=== PATIENT | male | born 1930 | race Caucasian/White ===

== ENCOUNTER 2018-04-28 18:55 | Observation (INO) ==
[2018-04-28] MEDS ORDERED: Morphine Sulfate Inj 2 MG/ML Vial IV.PUSH ONE (19:33)
[2018-04-28 20:19] LABS: Baso % (Auto) 0.4 % (0.0-2.0); Eos # (Auto) 0.1 th/mm3 (0.0-0.4); Eos % (Auto) 1.3 % (0.0-4.0); Hematocrit 40.1 % (39.0-51.0); Hemoglobin 13.5 gm/dL (13.0-17.0); Lymph # (Auto) 1.5 th/mm3 (1.0-4.8); Lymph % (Auto) 23.3 % (9.0-44.0); Mean Corpuscular HGB Conc 33.5 % (32.0-36.0); Mean Corpuscular Hemoglobin 34.4 pg (27.0-34.0); Mean Corpuscular Volume 102.5 fL (80.0-100.0); Mean Platelet Volume 8.6 fL (7.0-11.0); Mono # (Auto) 0.5 th/mm3 (0.0-0.9); Mono % (Auto) 7.9 % (0.0-8.0); Neut # (Auto) 4.3 th/mm3 (1.8-7.7); Neut % (Auto) 67.1 % (16.0-70.0); Platelet Count 116 th/mm3 (150-450); Red Blood Count 3.91 mil/mm3 (4.50-5.90); Red Cell Distribution Width 14.2 % (11.6-17.2); White Blood Count 6.4 th/mm3 (4.0-11.0)
--- NOTE | 2018-04-28 20:38 | XR ---
EXAM DATE: 04/28/2018 8:05 PM EDT AGE/SEX: 87 years / Male INDICATIONS: Chest pain with tightness and high blood pressure for 2 days. CLINICAL DATA: This is the patient's initial encounter. Patient reports that signs and symptoms have been present for 2 days and indicates a pain score of 2/10. MEDICAL/SURGICAL HISTORY: . High Blood pressure. CABG. COMPARISON: [facility], CHEST SINGLE AP, 01/12/2016. . FINDINGS: Heart size is enlarged. Previous sternotomy. Mild basilar density which may represent atelectasis. El evated left hemidiaphragm. CONCLUSION: Previous CABG with cardiomegaly. Basilar density could represent some dependent atelectasis. Question able mild interstitial edema. Electronically signed by: Noam Richards MD 04/28/2018 8:36 PM EDT
[2018-04-28 20:46] LABS: Alanine Aminotransferase 27 U/L (12-78)
[2018-04-28 20:47] LABS: Anion Gap 5 meq/L (5-15); Aspartate Aminotransferase 23 U/L (15-37); Blood Urea Nitrogen 11 mg/dL (7-18); Calcium 8.5 mg/dL (8.5-10.1); Carbon Dioxide 27.7 meq/L (21.0-32.0); Chloride 99 meq/L (98-107); Glomerular Filtration Rate 73 mL/min (>89); Glucose,Random 133 mg/dL (74-106); Potassium 4.6 meq/L (3.5-5.1); Sodium 132 meq/L (136-145)
[2018-04-28 20:49] LABS: Alkaline Phosphatase 99 U/L (45-117); Total Protein 7.6 g/dL (6.4-8.2)
[2018-04-28 20:54] LABS: INR 1.2 Ratio; Prothrombin Time 12.3 sec (9.8-11.6)
--- NOTE | 2018-04-28 20:55 | ED ---
HPI General Chief complaint: Extremity Problem,Nontraumatic Stated complaint: BP issues, increase in tremors Time Seen by Provider: 04/28/18 19:16 Source: patient and family Mode of arrival: ambulatory Limitations: no limitations History of Present Illness HPI narrative: 87-year-old male came to the emergency room with his and daughter with history of upper back pain radiating to his neck for past 1 week. Patient is saying that this pain is progressively getting worse. Pain exacerbates when he ambulates up to 10. Currently he has been getting pain even at rest. Patient says he is in pain right now at 5-6 out of 10. No history of nausea or vomiting. No history of shortness of breath. No history of diaphoresis. Patient has significant history of coronary artery disease and 5 vessel bypass done in 2000. Patient also had a STEMI 2 years ago. He has history of A. fib and currently on Eliquis. His back stayer is Dr. Smith from [facility] and vascular surgeon is Dr. Claire from [facility] as well. Patient has history of peripheral vascular disease. Vital signs are relatively stable. Onset (ago): week(s) Location: chest and back Radiation: neck Severity: moderate Severity scale (1-10): 7 Quality: aching Pain Consistency: constant Exacerbating factors: movement Associated symptoms: Reports weakness Related Data Home Medications Medication Instructions Recorded Confirmed Fish Oil 04/28/18 Vitamin D3 04/28/18 apixaban [Eliquis] 5 mg PO BID 04/28/18 04/28/18 furosemide [Lasix] mg PO DAILY PRN 04/28/18 04/28/18 isosorbide mononitrate 30 mg PO DAILY 04/28/18 04/28/18 lorazepam 0.5 mg PO HS 04/28/18 04/28/18 potassium chloride meq PO DAILY PRN 04/28/18 simvastatin 10 mg PO QPM 04/28/18 04/28/18 Previous Rx's Medication Instructions Recorded amlodipine [Norvasc] 5 mg PO DAILY #30 tab 04/30/18 losartan 50 mg PO DAILY #30 tab 04/30/18 metoprolol tartrate 25 mg PO BID #60 tab 04/30/18 Allergies Allergy/AdvReac Type Severity Reaction Status Date / Time No Known Allergies Allergy Verified 04/28/18 19:06 Review of Systems ROS: all other systems reviewed are negative Constitutional Reports lethargy Cardiovascular Reports chest pain [facility] Medical History Medical History Afib (Acute) Aneurysm (Acute) Hypertension (Acute) Prostate cancer (Acute) Surgical History Surgical History S/P CABG x 5 (Acute) Social History Social History Substance History: No History of Abuse Second Hand Smoke Exposure: No Smoking Status: Never smoker How Often Do You Have a Drink Containing Alcohol: 4 or more times a week Recent Travel in [facility] within the Last 8 Weeks: No Recent Out of Country Travel within the Last 8 Weeks: No Immunization History Tetanus Immunization: <5 Years Exam Narrative Exam Narrative: GENERAL: Awake, alert, elderly, anxious, moderate to SKIN: Focused skin assessment warm/dry. HEAD: Atraumatic. Normocephalic. EYES: Pupils equal and round. No scleral icterus. No injection or drainage. ENT: No nasal bleeding or discharge. Mucous membranes pink and moist. NECK: Trachea midline. No JVD. CARDIOVASCULAR: Regular rate and rhythm. No murmur appreciated. RESPIRATORY: No accessory muscle use. Clear to auscultation. Breath sounds equal bilaterally. GASTROINTESTINAL: Abdomen soft, non-tender, nondistended. Hepatic and splenic margins not palpable. MUSCULOSKELETAL: No obvious deformities. No clubbing. No cyanosis. No edema. NEUROLOGICAL: Awake and alert. No obvious cranial nerve deficits. Motor grossly within normal limits. Normal speech. PSYCHIATRIC: Appropriate mood and affect; insight and judgment normal. Course Initial Documented Vital Signs Temperature 97.4 F L 04/28/18 19:02 Pulse Rate 72 04/28/18 19:02 Respiratory Rate 18 04/28/18 19:02 Blood Pressure 199/123 H 04/28/18 19:02 Pulse Oximetry 96 04/28/18 19:02 Last Documented Vital Signs Temperature 98.3 F 04/30/18 08:00 Pulse Rate 76 04/30/18 08:00 Respiratory Rate 16 04/30/18 08:00 Blood Pressure 162/74 H 04/30/18 10:07 Pulse Oximetry 91 L 10/29/18 03:58 Medical Decision Making MDM Narrative Medical decision making narrative: 8:57 PM patient was given morphine for the pain. Blood test results are back and within acceptable limits. Given the significant history of coronary artery disease and this possibly simulating an angina variant I decided to admit the patient. Awaiting for the hospitalist to call me back. I have explained this to the patient and he understands. Medical Screen Exam Complete: Yes Emergency Medical Condition: Yes Lab Data Result diagrams: 04/29/18 01:29 04/29/18 01:29 Lab Results 04/28/18 04/28/18 04/28/18 Range/Units 19:41 19:41 19:41 WBC 6.4 (4.0-11.0) th/mm3 RBC 3.91 L (4.50-5.90) mil/mm3 Hgb 13.5 (13.0-17.0) gm/dL Hct 40.1 (39.0-51.0) % MCV 102.5 H (80.0-100.0) fL MCH 34.4 H (27.0-34.0) pg MCHC 33.5 (32.0-36.0) % RDW 14.2 (11.6-17.2) % Plt Count 116 L (150-450) th/mm3 MPV 8.6 (7.0-11.0) fL Neut % (Auto) 67.1 (16.0-70.0) % Lymph % (Auto) 23.3 (9.0-44.0) % Ballard % (Auto) 7.9 (0.0-8.0) % Eos % (Auto) 1.3 (0.0-4.0) % Baso % (Auto) 0.4 (0.0-2.0) % Neut # (Auto) 4.3 (1.8-7.7) th/mm3 Lymph # (Auto) 1.5 (1.0-4.8) th/mm3 Ballard # (Auto) 0.5 (0.0-0.9) th/mm3 Eos # (Auto) 0.1 (0.0-0.4) th/mm3 Baso # (Auto) 0.0 (0.0-0.2) th/mm3 WBC Differential . Differential Comment Auto diff final ESR (0-20) mm/hr PT (9.8-11.6) sec INR Ratio Sodium 132 L (136-145) meq/L Potassium 4.6 (3.5-5.1) meq/L Chloride 99 (98-107) meq/L Carbon Dioxide 27.7 (21.0-32.0) meq/L Anion Gap 5 (5-15) meq/L BUN 11 (7-18) mg/dL Creatinine 0.97 (0.60-1.30) mg/dL Estimated GFR 73 L (>89) mL/min Random Glucose 133 H (74-106) mg/dL Hemoglobin A1c (4.3-6.0) % Calcium 8.5 (8.5-10.1) mg/dL Total Bilirubin 0.9 (0.2-1.0) mg/dL AST 23 (15-37) U/L ALT 27 (12-78) U/L Alkaline Phosphatase 99 (45-117) U/L Troponin I Less than 0.02 L (0.02-0.05) ng/mL B-Natriuretic Peptide 346 H (0-100) pg/mL Total Protein 7.6 (6.4-8.2) g/dL Albumin 4.0 (3.4-5.0) g/dL Vitamin B12 (193-986) pg/mL TSH (0.358-3.740) uIU/mL 04/28/18 04/28/18 04/29/18 Range/Units 20:15 21:46 01:29 WBC 6.1 (4.0-11.0) th/mm3 RBC 3.45 L (4.50-5.90) mil/mm3 Hgb 12.0 L (13.0-17.0) gm/dL Hct 35.0 L (39.0-51.0) % MCV 101.5 H (80.0-100.0) fL MCH 34.7 H (27.0-34.0) pg MCHC 34.2 (32.0-36.0) % RDW 14.1 (11.6-17.2) % Plt Count 111 L (150-450) th/mm3 MPV 8.4 (7.0-11.0) fL Neut % (Auto) 63.1 (16.0-70.0) % Lymph % (Auto) 27.5 (9.0-44.0) % Ballard % (Auto) 8.4 H (0.0-8.0) % Eos % (Auto) 0.6 (0.0-4.0) % Baso % (Auto) 0.4 (0.0-2.0) % Neut # (Auto) 3.9 (1.8-7.7) th/mm3 Lymph # (Auto) 1.7 (1.0-4.8) th/mm3 Ballard # (Auto) 0.5 (0.0-0.9) th/mm3 Eos # (Auto) 0.0 (0.0-0.4) th/mm3 Baso # (Auto) 0.0 (0.0-0.2) th/mm3 WBC Differential . Differential Comment Auto diff final ESR (0-20) mm/hr PT 12.3 H (9.8-11.6) sec INR 1.2 Ratio Sodium (136-145) meq/L Potassium (3.5-5.1) meq/L Chloride (98-107) meq/L Carbon Dioxide (21.0-32.0) meq/L Anion Gap (5-15) meq/L BUN (7-18) mg/dL Creatinine (0.60-1.30) mg/dL Estimated GFR (>89) mL/min Random Glucose (74-106) mg/dL Hemoglobin A1c (4.3-6.0) % Calcium (8.5-10.1) mg/dL Total Bilirubin (0.2-1.0) mg/dL AST (15-37) U/L ALT (12-78) U/L Alkaline Phosphatase (45-117) U/L Troponin I (0.02-0.05) ng/mL B-Natriuretic Peptide (0-100) pg/mL Total Protein (6.4-8.2) g/dL Albumin (3.4-5.0) g/dL Vitamin B12 (193-986) pg/mL TSH 1.050 (0.358-3.740) uIU/mL 04/29/18 04/29/18 04/29/18 Range/Units 01:29 01:29 07:21 WBC (4.0-11.0) th/mm3 RBC (4.50-5.90) mil/mm3 Hgb (13.0-17.0) gm/dL Hct (39.0-51.0) % MCV (80.0-100.0) fL MCH (27.0-34.0) pg MCHC (32.0-36.0) % RDW (11.6-17.2) % Plt Count (150-450) th/mm3 MPV (7.0-11.0) fL Neut % (Auto) (16.0-70.0) % Lymph % (Auto) (9.0-44.0) % Ballard % (Auto) (0.0-8.0) % Eos % (Auto) (0.0-4.0) % Baso % (Auto) (0.0-2.0) % Neut # (Auto) (1.8-7.7) th/mm3 Lymph # (Auto) (1.0-4.8) th/mm3 Ballard # (Auto) (0.0-0.9) th/mm3 Eos # (Auto) (0.0-0.4) th/mm3 Baso # (Auto) (0.0-0.2) th/mm3 WBC Differential Differential Comment ESR (0-20) mm/hr PT (9.8-11.6) sec INR Ratio Sodium 135 L (136-145) meq/L Potassium 4.3 (3.5-5.1) meq/L Chloride 102 (98-107) meq/L Carbon Dioxide 25.4 (21.0-32.0) meq/L Anion Gap 8 (5-15) meq/L BUN 11 (7-18) mg/dL Creatinine 0.76 (0.60-1.30) mg/dL Estimated GFR Greater than 89 (>89) mL/min Random Glucose 113 H (74-106) mg/dL Hemoglobin A1c 6.1 H (4.3-6.0) % Calcium 8.2 L (8.5-10.1) mg/dL Total Bilirubin 1.1 H (0.2-1.0) mg/dL AST 20 (15-37) U/L ALT 20 (12-78) U/L Alkaline Phosphatase 79 (45-117) U/L Troponin I Less than 0.02 L Less than 0.02 L (0.02-0.05) ng/mL B-Natriuretic Peptide (0-100) pg/mL Total Protein 6.2 L D (6.4-8.2) g/dL Albumin 3.4 D (3.4-5.0) g/dL Vitamin B12 356 (193-986) pg/mL TSH (0.358-3.740) uIU/mL 04/29/18 Range/Units 16:45 WBC (4.0-11.0) th/mm3 RBC (4.50-5.90) mil/mm3 Hgb (13.0-17.0) gm/dL Hct (39.0-51.0) % MCV (80.0-100.0) fL MCH (27.0-34.0) pg MCHC (32.0-36.0) % RDW (11.6-17.2) % Plt Count (150-450) th/mm3 MPV (7.0-11.0) fL Neut % (Auto) (16.0-70.0) % Lymph % (Auto) (9.0-44.0) % Ballard % (Auto) (0.0-8.0) % Eos % (Auto) (0.0-4.0) % Baso % (Auto) (0.0-2.0) % Neut # (Auto) (1.8-7.7) th/mm3 Lymph # (Auto) (1.0-4.8) th/mm3 Ballard # (Auto) (0.0-0.9) th/mm3 Eos # (Auto) (0.0-0.4) th/mm3 Baso # (Auto) (0.0-0.2) th/mm3 WBC Differential Differential Comment ESR 7 (0-20) mm/hr PT (9.8-11.6) sec INR Ratio Sodium (136-145) meq/L Potassium (3.5-5.1) meq/L Chloride (98-107) meq/L Carbon Dioxide (21.0-32.0) meq/L Anion Gap (5-15) meq/L BUN (7-18) mg/dL Creatinine (0.60-1.30) mg/dL Estimated GFR (>89) mL/min Random Glucose (74-106) mg/dL Hemoglobin A1c (4.3-6.0) % Calcium (8.5-10.1) mg/dL Total Bilirubin (0.2-1.0) mg/dL AST (15-37) U/L ALT (12-78) U/L Alkaline Phosphatase (45-117) U/L Troponin I (0.02-0.05) ng/mL B-Natriuretic Peptide (0-100) pg/mL Total Protein (6.4-8.2) g/dL Albumin (3.4-5.0) g/dL Vitamin B12 (193-986) pg/mL TSH (0.358-3.740) uIU/mL Imaging Data Radiologist's impression: Head CT 04/28/18 00:00 CONCLUSION: 1. No acute intracranial abnormalities . Chest X-Ray 04/28/18 19:31 CONCLUSION: Previous CABG with cardiomegaly. Basilar density could represent some dependent atelectasis. Questionable mild interstitial edema. Carotid Doppler Study 04/29/18 00:00 CONCLUSION: 1. Right Internal Carotid Artery: Findings indicate <50% stenosis. 2. Left Internal Carotid Artery: Findings indicate 50-69% stenosis. Cervical Spine MRI 04/29/18 00:00 CONCLUSION: There are degenerative changes of the cervical spine, as above. However, no significant spinal canal stenosis or neural foraminal narrowing is present. Head MRI 04/29/18 00:00 CONCLUSION: Diffuse atrophy but no evidence of an acute stroke, mass or mass effect. Diffusion weighted sequences are normal. No subarachnoid or subdural hematoma is identified. Head MRA 04/29/18 00:00 CONCLUSION: 1. No definite intracranial stenosis or vascular occlusion. Nonvisualization of the proximal to mid posterior cerebral arteries bilaterally may be due to technical factors. There is reconstitution of flow distally on both sides. ECG Data Attestation: I personally reviewed and interpreted this ECG as follows: Interpretation: Twelve-lead EKG was reviewed by me. Normal A. fib, heart rate of 65 bpm, interventricular conduction delay. Discharge Plan Discharge Disposition Patient Disposition: 30 Still Patient Discharge Condition Condition: Stable Discharge Order Discharge Orders: Discharge Order (Routine); Ordered 04/30/18 Ordered By: Isaura Upton Discharge Details Anticipated Discharge Date: 04/30/18 Physicians Team ED Provider: Edita Vazquez Primary Care Provider: Juan Carlos Hernandez Attending Provider: Sophy Calvin Other Providers: Astrid Hercules David Status ED Status: Left Department Discharge Information Discharge Date/Time: 04/28/18 23:40
[2018-04-28] MEDS ORDERED: Bisacodyl 10 MG Supp RECTAL PRN (21:20)
--- NOTE | 2018-04-28 22:47 | P.HPIM ---
History of Present Illness Primary Care Physician: Juan Carlos Hernandez MD Review of Systems All other systems reviewed negative except as stated in HPI PMFSH - History History Provided By: Patient - Medical History Medical History: Medical History (Last Reviewed 04/28/18 @ 22:46 by Saroj Lopez MD) Afib Aneurysm Hypertension Prostate cancer - Surgical History Surgical History: Surgical History (Last Reviewed 04/28/18 @ 22:46 by Saroj Lopez MD) S/P CABG x 5 - Family History Family History: Family History (Last Reviewed 04/28/18 @ 22:46 by Saroj Lopez MD) Sister Heart problem Father Stomach cancer - Tobacco History Smoking Status: Never smoker - Alcohol History How Often Do You Have a Drink Containing Alcohol: 4 or more times a week - Substance Use History Substance History: No History of Abuse - Travel History Recent Travel in the [place] Within the Last 8 Weeks: No Recent Travel Out of the Country Within the Last 8 Weeks: No - Immunization History Tetanus Immunization: <5 Years Medications and Allergies Active Medications: Active Medications Al Hydroxide/Mg Hydroxide (Milk Of Magnesia Liq) 30 ml PO Q12H PRN PRN Reason: Mild Constipation Apixaban (Eliquis) 5 mg PO BID SUNIL Bisacodyl (Dulcolax Supp) 10 mg RECTAL DAILY PRN PRN Reason: SEVERE CONSITIPATION Enalaprilat (Vasotec Inj) 1.25 mg IV.PUSH Q6H PRN PRN Reason: SBP>160, DBP>90 Last Admin: 04/28/18 22:10 Dose: 1.25 mg Isosorbide Mononitrate (Imdur) 30 mg PO DAILY SUNIL Lactulose (Lactulose Liq) 30 ml PO DAILY PRN PRN Reason: SEVERE CONSITIPATION Losartan Potassium (Cozaar) 25 mg PO DAILY SUNIL Metoprolol Succinate (Toprol Xl) 25 mg PO DAILY SUNIL Pravastatin Sodium (Pravachol) 20 mg PO QPM SUNIL Sennosides (Senokot) 17.2 mg PO Q12H PRN PRN Reason: Moderate Constipation Sodium Chloride (Ns Flush) 2 ml IV.FLUSH UNSCH PRN PRN Reason: FLUSH AFTER USING IV ACCESS Allergies Allergy/AdvReac Type Severity Reaction Status Date / Time No Known Allergies Allergy Verified 04/28/18 19:06 Home Medications Medication Instructions Recorded Confirmed Type Fish Oil 04/28/18 History Vitamin D3 04/28/18 History apixaban [Eliquis] 5 mg PO BID 04/28/18 04/28/18 History furosemide [Lasix] mg PO DAILY PRN 04/28/18 04/28/18 History isosorbide mononitrate 30 mg PO DAILY 04/28/18 04/28/18 History lorazepam 0.5 mg PO HS 04/28/18 04/28/18 History losartan 25 mg PO DAILY 04/28/18 04/28/18 History metoprolol succinate 25 mg PO DAILY 04/28/18 04/28/18 History potassium chloride meq PO DAILY PRN 04/28/18 History simvastatin 10 mg PO QPM 04/28/18 04/28/18 History Exam Vital signs: Vital Signs 04/28/18 19:02 04/28/18 19:20 04/28/18 20:18 Temperature 97.4 F L Pulse Rate 72 73 Respiratory Rate 18 18 Blood Pressure 199/123 H 189/94 H Pulse Oximetry 96 100 99 04/28/18 20:19 04/28/18 22:16 Temperature Pulse Rate 67 78 Respiratory Rate 18 18 Blood Pressure 188/93 H 190/96 H Pulse Oximetry 98 97 Intake & Output 04/28/18 04/28/18 04/29/18 06:59 18:59 06:59 Weight 79.379 kg Narrative: GENERAL:. Appears comfortable. SKIN: Warm and dry. HEAD: Atraumatic. Normocephalic. EYES: Pupils equal and round. No scleral icterus. No injection or drainage. ENT: No nasal bleeding or discharge. Mucous membranes pink and moist. Bilateral neck fullness. Patient reports this has been looked into by primary care and patient with bilateral lipomas. NECK: Trachea midline. No JVD. CARDIOVASCULAR: Regular rate and rhythm. RESPIRATORY: No accessory muscle use. Clear to auscultation. Breath sounds equal bilaterally. GASTROINTESTINAL: Abdomen soft, non-tender, nondistended. Hepatic and splenic margins not palpable. MUSCULOSKELETAL: Extremities without clubbing, cyanosis, or edema. No obvious deformities. NEUROLOGICAL: Awake and alert. No obvious cranial nerve deficits. Motor grossly within normal limits. Five out of 5 muscle strength in the arms and legs. Normal speech. Patient with right upper extremity essential tremor. PSYCHIATRIC: Appropriate mood and affect; insight and judgment normal. Results - Labs CBC & Chem 7: 04/28/18 19:41 04/28/18 19:41 Labs: Short CBC 04/28/18 Range/Units 19:41 WBC 6.4 (4.0-11.0) th/mm3 Hgb 13.5 (13.0-17.0) gm/dL Hct 40.1 (39.0-51.0) % Plt Count 116 L (150-450) th/mm3 BMP 04/28/18 19:41 Sodium 132 L Potassium 4.6 Chloride 99 Carbon Dioxide 27.7 BUN 11 Creatinine 0.97 Calcium 8.5 Cardiac Enzymes 04/28/18 Range/Units 19:41 Troponin I Less than 0.02 L (0.02-0.05) ng/mL Liver Function 04/28/18 Range/Units 19:41 Total Bilirubin 0.9 (0.2-1.0) mg/dL AST 23 (15-37) U/L ALT 27 (12-78) U/L Alkaline Phosphatase 99 (45-117) U/L Albumin 4.0 (3.4-5.0) g/dL - Imaging Impressions Chest X-Ray 04/28/18 19:31 CONCLUSION: Previous CABG with cardiomegaly. Basilar density could represent some dependent atelectasis. Questionable mild interstitial edema. Caprini VTE Risk Assessment Caprini VTE Risk Assessment: Moderate/High Risk (score >= 2) Caprini Risk Assessment Model: Point Value = 1 Point Value = 2 Point Value = 3 Point Value = 5 Age 41-60 Minor surgery BMI > 25 kg/m2 Swollen legs Varicose veins or History of unexplained or recurrent spontaneous Oral contraceptives or hormone replacement Sepsis (< 1 month) Serious lung disease, including pneumonia (< 1 month) Abnormal pulmonary function Acute myocardial infarction Congestive heart failure (< 1 month) History of inflammatory bowel disease Medical patient at bed rest Age 61-74 Arthroscopic surgery Major open surgery (> 45 min) Laparoscopic surgery (> 45 min) Malignancy Confined to bed (> 72 hours) Immobilizing plaster cast Central venous access Age >= 75 History of VTE Family history of VTE Factor V Leiden Prothrombin [id number] Lupus anticoagulant Anticardiolipin antibodies Elevated serum homocysteine Heparin-induced thrombocytopenia Other congenital or acquired thrombophilia Stroke (< 1 month) Elective arthroplasty Hip, pelvis, or leg fracture Acute spinal cord injury (< 1 month) Prophylaxis Regimen: Total Risk Factor Score Risk Level Prophylaxis Regimen 0-1 Low Early ambulation 2 Moderate Order ONE of the following: *Sequential Compression Device (SCD) *Heparin 5000 units SQ BID 3-4 Higher Order ONE of the following medications: *Heparin 5000 units SQ TID *Enoxaparin/Lovenox 40 mg SQ daily (WT < 150 kg, CrCl > 30 mL/min) *Enoxaparin/Lovenox 30 mg SQ daily (WT < 150 kg, CrCl > 10-29 mL/min) *Enoxaparin/Lovenox 30 mg SQ BID (WT < 150 kg, CrCl > 30 mL/min) AND/OR *Sequential Compression Device (SCD) 5 or more Highest Order ONE of the following medications: *Heparin 5000 units SQ TID (Preferred with Epidurals) *Enoxaparin/Lovenox 40 mg SQ daily (WT < 150 kg, CrCl > 30 mL/min) *Enoxaparin/Lovenox 30 mg SQ daily (WT < 150 kg, CrCl > 10-29 mL/min) *Enoxaparin/Lovenox 30 mg SQ BID (WT < 150 kg, CrCl > 30 mL/min) AND *Sequential Compression Device (SCD) Assessment and Plan - Plan //Hypertensive urgency //Headache = With symptoms of headache, BL pounding neck pain = Patient does have known abdominal aortic aneurysm, however without abdominal pain at this time. = Systolic blood pressures in the 220s. = We will check CT head. = Restart home meds. Start enalapril IV as needed. //ER concern for atypical chest pain -EKG and troponins unremarkable. We will trend EKGs and troponins. //Recent complaint of ataxia, wide-based gait //Exacerbation of right upper extremity essential tremor. -Planes of "lightheadedness," however description is more of ataxia and wide- based gait. -Suspect this could be secondary to high blood pressure. Will check CT head Aggressive blood pressure control. -Also with symptoms consistent with Parkinson's. -We will check B12 and TSH Consult neurology. //Atrial fibrillation. Rate controlled. Continue home medication. Continue anticoagulation with Eliquis. //Hyperlipidemia. Chronic. Continue home medication. Discussed Condition With: Patient, nurse, ED physician, and daughter at bedside
--- NOTE | 2018-04-28 22:52 | CT ---
EXAM DATE: 04/28/2018 10:46 PM EDT AGE/SEX: 87 years / Male INDICATIONS: Headache, light-headed and worsening of tremors. CLINICAL DATA: This is the patient's initial encounter. Patient reports that signs and symptoms have been present for 1 day and indicates a pain score of 4/10. MEDICAL/SURGICAL HISTORY: Carcinoma, prostatic. Hypertension. Atrial fibrillation, aneurysm CABG. RADIATION DOSE: 39.23 CTDI (mGy) COMPARISON: No prior exams available for comparison. TECHNIQUE: CT of the head without contrast. Using automated exposure control and adjustment of the mA and/or kV according to patient size, radiation dose was kept as low as reasonably achievable to ob tain optimal diagnostic quality images. DICOM format image data is available electronically for revi ew and comparison. FINDINGS: Cerebrum: The ventricles are normal for age. No evidence of midline shift, mass lesion, hemorrhage or acute infarction. No extraaxial fluid collections are seen. Posterior Fossa: The cerebellum and brainstem are intact. The 4th ventricle is midline. The cerebe llopontine angle is unremarkable. Extracranial: The visualized portion of the orbits is intact. Skull: The calvaria is intact. No evidence of skull fracture. CONCLUSION: 1. No acute intracranial abnormalities . Electronically signed by: Noam Richards MD 04/28/2018 10:50 PM EDT
--- NOTE | 2018-04-28 22:53 | ECG ---
Date Performed: 04/28/2018 Time Performed: 19:25:07 PTAGE: 87 years EKG: ATRIAL FIBRILLATION INDETERMINATE AXIS MODERATE INTRAVENTRICULAR CONDUCTION DELAY ABNORMAL RHYTHM ECG NO PREVIOUS TRACING DOCTOR: Ajit Fofana Interpretating Date/Time 05/01/2018 13:25:55
[2018-04-29 01:43] LABS: Baso % (Auto) 0.4 % (0.0-2.0); Eos % (Auto) 0.6 % (0.0-4.0); Lymph # (Auto) 1.7 th/mm3 (1.0-4.8); Lymph % (Auto) 27.5 % (9.0-44.0); Mean Corpuscular HGB Conc 34.2 % (32.0-36.0); Mean Corpuscular Hemoglobin 34.7 pg (27.0-34.0); Mean Corpuscular Volume 101.5 fL (80.0-100.0); Mean Platelet Volume 8.4 fL (7.0-11.0); Mono # (Auto) 0.5 th/mm3 (0.0-0.9); Mono % (Auto) 8.4 % (0.0-8.0); Neut # (Auto) 3.9 th/mm3 (1.8-7.7); Neut % (Auto) 63.1 % (16.0-70.0); Platelet Count 111 th/mm3 (150-450); Red Blood Count 3.45 mil/mm3 (4.50-5.90); Red Cell Distribution Width 14.1 % (11.6-17.2); White Blood Count 6.1 th/mm3 (4.0-11.0)
[2018-04-29 02:07] LABS: Alanine Aminotransferase 20 U/L (12-78); Albumin 3.4 g/dL (3.4-5.0); Anion Gap 8 meq/L (5-15); Aspartate Aminotransferase 20 U/L (15-37); Blood Urea Nitrogen 11 mg/dL (7-18); Calcium 8.2 mg/dL (8.5-10.1); Carbon Dioxide 25.4 meq/L (21.0-32.0); Chloride 102 meq/L (98-107); Glomerular Filtration Rate Greater Than 89 mL/min (>89); Glucose,Random 113 mg/dL (74-106); Potassium 4.3 meq/L (3.5-5.1); Sodium 135 meq/L (136-145)
[2018-04-29 02:33] LABS: Alkaline Phosphatase 79 U/L (45-117); Total Protein 6.2 g/dL (6.4-8.2); Vitamin B12 356 pg/mL (193-986)
--- NOTE | 2018-04-29 07:30 | P.PN ---
Subjective Interval history: Follow-up on patient with headache. Patient seen and examined. Patient complains of posterior left-sided headache. He says it is not that bad this morning. He denies any dizziness, vision changes or lightheadedness. He denies any chest pain or palpitations. He denies any shortness of breath or cough. He denies any nausea, vomiting or abdominal pain. He states he is urinating without any difficulties. He denies any diarrhea or constipation. He is not having any neck pain this morning. He denies any new weakness or difficulty holding onto objects. He states his handwriting has changed due to the tremor in his right hand. Physical Exam Vital signs: Vital Signs 04/28/18 19:02 04/28/18 19:20 04/28/18 20:18 Temperature 97.4 F L Pulse Rate 72 73 Respiratory Rate 18 18 Blood Pressure 199/123 H 189/94 H Pulse Oximetry 96 100 99 04/28/18 20:19 04/28/18 22:16 04/28/18 23:03 Temperature Pulse Rate 67 78 66 Respiratory Rate 18 18 18 Blood Pressure 188/93 H 190/96 H 143/78 H Pulse Oximetry 98 97 96 04/28/18 23:37 04/29/18 03:59 Temperature 97.5 F L 97.7 F Pulse Rate 73 65 Respiratory Rate 18 18 Blood Pressure 137/75 137/85 Pulse Oximetry 97 98 Intake & Output 04/28/18 04/29/18 04/29/18 18:59 06:59 18:59 Weight 79.37 kg Other: Date of Last Bowel Movement 04/29/18 Weight On Admission 78.6 kg Narrative: GENERAL: Well-developed well-nourished elderly male patient in no acute distress. Awake and alert. Appears comfortable. +RUE essential tremor. SKIN: Warm and dry. HEENT: Atraumatic. Normocephalic. Pupils equal and round. No scleral icterus. No injection or drainage. No nasal bleeding or discharge. Mucous membranes pink and moist. Bilateral neck fullness. Patient reports this has been looked into by primary care and patient with bilateral lipomas. NECK: Trachea midline. +tenderness to palpation over left greater occiput. CARDIOVASCULAR: Regular rate and rhythm. RESPIRATORY: No accessory muscle use. Clear to auscultation. Breath sounds equal bilaterally. GASTROINTESTINAL: Abdomen soft, non-tender, nondistended. +BS. MUSCULOSKELETAL: Extremities without clubbing, cyanosis, or edema. No obvious deformities. NEUROLOGICAL: Awake and alert. No obvious cranial nerve deficits. Motor grossly within normal limits. Able to move all extremity spontaneously. Normal speech. PSYCHIATRIC: Appropriate mood and affect; insight and judgment normal. Results - Labs CBC & Chem 7: 04/29/18 01:29 04/29/18 01:29 Laboratory Results - last 24 hr 04/28/18 04/28/18 04/28/18 19:41 19:41 19:41 WBC 6.4 RBC 3.91 L Hgb 13.5 Hct 40.1 MCV 102.5 H MCH 34.4 H MCHC 33.5 RDW 14.2 Plt Count 116 L MPV 8.6 Neut % (Auto) 67.1 Lymph % (Auto) 23.3 Terry % (Auto) 7.9 Eos % (Auto) 1.3 Baso % (Auto) 0.4 Neut # (Auto) 4.3 Lymph # (Auto) 1.5 Terry # (Auto) 0.5 Eos # (Auto) 0.1 Baso # (Auto) 0.0 WBC Differential . Differential Comment Auto diff final PT INR Sodium 132 L Potassium 4.6 Chloride 99 Carbon Dioxide 27.7 Anion Gap 5 BUN 11 Creatinine 0.97 Estimated GFR 73 L Random Glucose 133 H Calcium 8.5 Total Bilirubin 0.9 AST 23 ALT 27 Alkaline Phosphatase 99 Troponin I Less than 0.02 L B-Natriuretic Peptide 346 H Total Protein 7.6 Albumin 4.0 Vitamin B12 TSH 04/28/18 04/28/18 04/29/18 20:15 21:46 01:29 WBC 6.1 RBC 3.45 L Hgb 12.0 L Hct 35.0 L MCV 101.5 H MCH 34.7 H MCHC 34.2 RDW 14.1 Plt Count 111 L MPV 8.4 Neut % (Auto) 63.1 Lymph % (Auto) 27.5 Terry % (Auto) 8.4 H Eos % (Auto) 0.6 Baso % (Auto) 0.4 Neut # (Auto) 3.9 Lymph # (Auto) 1.7 Terry # (Auto) 0.5 Eos # (Auto) 0.0 Baso # (Auto) 0.0 WBC Differential . Differential Comment Auto diff final PT 12.3 H INR 1.2 Sodium Potassium Chloride Carbon Dioxide Anion Gap BUN Creatinine Estimated GFR Random Glucose Calcium Total Bilirubin AST ALT Alkaline Phosphatase Troponin I B-Natriuretic Peptide Total Protein Albumin Vitamin B12 TSH 1.050 04/29/18 01:29 WBC RBC Hgb Hct MCV MCH MCHC RDW Plt Count MPV Neut % (Auto) Lymph % (Auto) Terry % (Auto) Eos % (Auto) Baso % (Auto) Neut # (Auto) Lymph # (Auto) Terry # (Auto) Eos # (Auto) Baso # (Auto) WBC Differential Differential Comment PT INR Sodium 135 L Potassium 4.3 Chloride 102 Carbon Dioxide 25.4 Anion Gap 8 BUN 11 Creatinine 0.76 Estimated GFR Greater than 89 Random Glucose 113 H Calcium 8.2 L Total Bilirubin 1.1 H AST 20 ALT 20 Alkaline Phosphatase 79 Troponin I Less than 0.02 L B-Natriuretic Peptide Total Protein 6.2 L D Albumin 3.4 D Vitamin B12 356 TSH - Imaging Impressions Head CT 04/28/18 00:00 CONCLUSION: 1. No acute intracranial abnormalities . Chest X-Ray 04/28/18 19:31 CONCLUSION: Previous CABG with cardiomegaly. Basilar density could represent some dependent atelectasis. Questionable mild interstitial edema. Assessment and Plan - Plan 87-year-old male with a history of coronary artery disease status post 5 vessel CABG, peripheral artery disease, abdominal aortic aneurysm who presents with a 2 -day history of progressively worsening throbbing bilateral neck pain radiating to bilateral head, shuffling, wide-based gait with generalized weakness. Hypertensive urgency With symptoms of headache, BL pounding neck pain Patient does have known abdominal aortic aneurysm, however without abdominal pain at this time. Systolic blood pressures in the 220s. Head CT with no acute intracranial abnormalities -Continue on home medications losartan, isosorbide, metoprolol and Eliquis -IV Vasotec as needed Headache, possibly cervicogenic in origin vs secondary to uncontrolled BP ?Greater occipital neuralgia -Trial of Fioricet -Obtain MRI cervical spine for further evaluation ER concern for atypical chest pain history of 5 vessel CABG Patient denies any complaints of chest pain EKG and troponins unremarkable. -Cardiology consulted, appreciate assistance. Added amlodipine to patient's antihypertensive regimen.. No further workup for ischemia. Atrial fibrillation, rate controlled -Resume patient on home dose of Eliquis and beta-tulio -Monitor heart rate Recent complaint of ataxia, wide-based gait Exacerbation of right upper extremity essential tremor. Complains of "lightheadedness," however description is more of ataxia and wide- based gait. Suspect this could be secondary to high blood pressure. Carotid US revealing less than 50% stenosis in the right internal carotid artery , 50-69% stenosis in the left internal carotid artery Orthostatics neg -Consult neurology, appreciate assistance Aggressive blood pressure control. -Also with symptoms consistent with Parkinson's. Hyperlipidemia, chronic -Continue home statin therapy DVT prophylaxis -Patient is on Eliquis Code Status: Full Discussed Condition With: patient, nursing staff, Dr. Calvin, Dr. Lazo Discharge Planning: Not ready for discharge
[2018-04-29] MEDS ORDERED: Butalbital/APAP/Caff 50/325/40 MG Tablet PO PRN (09:02)
[2018-04-29] MEDS ORDERED: Butalbital/APAP/Caff 50/325/40 MG Tablet PO ONE (09:15)
[2018-04-29] MEDS: amLODIPine 5 MG Tablet PO SCH (09:40)
[2018-04-29] MEDS: Metoprolol Tartrate 25 MG Tablet PO SCH ×2 (09:40→21:13)
[2018-04-29] MEDS: Isosorbide Mononitrate 30 MG ER 24HR Tablet (Imdur) PO SCH (09:40)
--- NOTE | 2018-04-29 10:23 | US ---
EXAM DATE: 04/29/2018 10:16 AM EDT AGE/SEX: 87 years / Male INDICATIONS: Weakness. CLINICAL DATA: This is the patient's initial encounter. Patient reports that signs and symptoms have been present for 1 week and indicates a pain score of 0/10. MEDICAL/SURGICAL HISTORY: Hypertension. A-fib. Aneurysm. Coronary artery disease. Prostate canc er. CABG. COMPARISON: No prior exams available for comparison. VELOCITY PARAMETERS: ICA/CCA Ratio: Right 1.1 , Left 1.5 ICA: Right 84 cm/sec, Left 135 cm/sec CCA: Right 75 cm/sec, Left 90 cm/sec ECA: Right 82 cm/sec, Left 85 cm/sec Vertebral: Right 35 cm/sec antegrade, Left 71 cm/sec antegrade FINDINGS: Right Carotid: There is mild to moderate calcified plaque in the carotid bulb.The waveforms are with in normal limits. Left Carotid: There is mild focal plaque in the proximal to mid common carotid artery. Mild calcifie d plaque is present within the carotid bulb and proximal internal carotid artery. The waveforms are w ithin normal limits. Other: None. CONCLUSION: 1. Right Internal Carotid Artery: Findings indicate <50% stenosis. 2. Left Internal Carotid Artery: Findings indicate 50-69% stenosis. Electronically signed by: Christian Lyle MD 04/29/2018 10:21 AM EDT
--- NOTE | 2018-04-29 11:19 | MB ---
cc: Astrid Hercules MD DATE: 04/29/2018 HISTORY OF PRESENT ILLNESS: The patient is an 87-year-old gentleman who sees Dr. Talavera as an outpatient. He does have a history of CABG and I in fact cathed him in 01/2016. At that time, he had normal LV function. There was severe [place] disease. The GARCIA to LAD was atretic and this was felt secondary to competitive flow, as there was only minimal disease in the [place] artery. The SVG to the diagonal, OM and PDA were all patent. The patient reports he has been doing well recently. He has had typically good control of his blood pressure until the last several days. He noticed that he is having very high blood pressures at home. He began having neck discomfort that caused flushing up into his face. He specifically denies any chest pain. He has also had some difficulties with generalized weakness. PAST MEDICAL AND SURGICAL HISTORY: Significant for hypertension, hyperlipidemia, CAD with prior CABG as above, peripheral vascular disease with abdominal aortic aneurysm, atrial fibrillation. OUTPATIENT MEDICATIONS: Include: 1. Eliquis. 2. Isosorbide. 3. Losartan. 4. Metoprolol 25 mg p.o. b.i.d. (I realize this is different than the listed meds). 5. Pravastatin. REVIEW OF SYSTEMS: Except as mentioned in the HPI, all 12 systems are negative. FAMILY HISTORY: Noncontributory. PHYSICAL EXAMINATION: VITAL SIGNS: Temperature 98.4, pulse 67, blood pressure 180/89. GENERAL: He is a well-appearing, elderly man who is in no apparent distress. NECK: Free from JVD. LUNGS: Bilaterally clear to auscultation. CARDIOVASCULAR: He has a normal S1 and S2. I did not appreciate any murmurs, rubs or gallops. ABDOMEN: Soft. EXTREMITIES: Free from edema. LABORATORY DATA: Significant for a hemoglobin of 12. His creatinine is 0.76 and serial troponins are less than 0.02. His BNP is 346. Chest x-ray does show bibasilar densities, which could possibly represent some dependent atelectasis. EKG shows atrial fibrillation. IMPRESSION: Uncontrolled hypertension - the patient does have what seems to be a reasonable outpatient regimen. After discussion with him, he does love cheese and has cold cuts. We discussed extensively sodium intake as this would be the most likely etiology to his fluctuations in blood pressure. I am going to add some amlodipine to assist with this. I will also give him clonidine p.r.n. CAD - the patient does appear reasonably stable as his cardiac catheterization was just over 2 years ago and he is seemingly stable. I do not feel we need to pursue any further evaluation for ischemia. Atrial fibrillation - the patient is reasonably controlled. I would continue him on his present medication for this and will be sure that he is on the metoprolol tartrate. MD LYNSEY Weldon/crista , 07:52 AM , 08:01 AM
[2018-04-29] MEDS ORDERED: Gadobutrol PF 10 MMOL/10 ML Vial (for RAD) IV.SIG ONE ×2 (11:46→18:32)
--- NOTE | 2018-04-29 12:08 | MR ---
EXAM DATE: 04/29/2018 11:57 AM EDT AGE/SEX: 87 years / Male INDICATIONS: Gait disorder. CLINICAL DATA: This is the patient's initial encounter. Patient reports that signs and symptoms have been present for 2 days and indicates a pain score of 0/10. MEDICAL/SURGICAL HISTORY: Carcinoma, prostatic. Hypertension. Cardiovascular disease. CABG. Umbilical hernia repair. COMPARISON: No prior exams available for comparison. TECHNIQUE: Multiplanar, multisequence MRI examination of the cervical spine was performed without an d with 8cc ml Gadavist (gadobutrol) contrast as a single exam dose. FINDINGS: Vertebrae: Bone marrow signal is within normal limits. No acute abnormality. There is a very mild h eight loss at the superior endplate of T1. However, there is no associated edema. Alignment: There is 2 mm of anterolisthesis of C5 on C6. Cord: Normal signal. Post Fossa: The cerebellar tonsils are normal in position. The craniocervical junction and C1-C2 level demonstrate no acute abnormality. C2-C3: There is mild right facet arthrosis. No significant disc herniation, canal stenosis, or neura l foraminal stenosis is present. C3-C4: There is mild bilateral facet arthrosis. No disc herniation, canal stenosis, or neural forami nal stenosis is identified. C4-C5: There is bilateral facet arthrosis, left greater than right. No disc herniation, canal stenos is, or neural foraminal stenosis is identified. C5-C6: There is decreased disc height with 2 mm of anterolisthesis. Mild diffuse posterior disc oste ophyte complex is present along with small right uncovertebral osteophyte. However, no significant sp inal canal stenosis or neural foraminal narrowing is appreciated. C6-C7: Decreased disc height with small endplate osteophytes anteriorly. There is a small diffuse po sterior disc osteophyte complex. No spinal canal stenosis or neural foraminal narrowing is present. C7-T1: No disc herniation, canal stenosis, or neural foraminal stenosis. Post contrast: No areas of abnormal contrast enhancement are identified. Other: The visualized surrounding structures demonstrate no acute abnormality. CONCLUSION: There are degenerative changes of the cervical spine, as above. However, no significant spinal canal stenosis or neural foraminal narrowing is present. Electronically signed by: Christian Lyle MD 04/29/2018 12:07 PM EDT
[2018-04-29 13:36] LABS: Hemoglobin A1c 6.1 % (4.3-6.0)
--- NOTE | 2018-04-29 14:25 | ECG ---
Date Performed: 04/28/2018 Time Performed: 21:51:30 PTAGE: 87 years EKG: ATRIAL FIBRILLATION INDETERMINATE AXIS INFERIOR MYOCARDIAL INFARCTION ABNORMAL ECG PREVIOUS TRACING : 04/28/2018 19.25 DOCTOR: Ajit Fofana Interpretating Date/Time 04/29/2018 14:23:32
--- NOTE | 2018-04-29 16:39 | MB ---
cc: Lonny Lazo MD DATE: 04/29/2018 HISTORY OF PRESENT ILLNESS: An 87-year-old right-handed man with hypertension, atrial fibrillation, CABG, prostate cancer, otherwise has been doing well. He has had a tremor in his right arm for about [address] Barron, may have been started on some Sinemet, it is unclear, but he did not feel well on it and stopped it. I am asked to see him for presyncope, some gait problems. He says maybe he shuffles a little bit at home, but will not today. He denies any memory problems. Yesterday felt lightheaded like he might pass out, but did not. He had been sitting and stood up quickly and felt that way. No chest pain, palpitations, or headache with it. He came in with some upper back pain radiating to his neck for the last week, 04/11 to 11/09. PAST MEDICAL HISTORY: As above. REVIEW OF SYSTEMS: He denies any diabetes, hypercholesterolemia, renal, hepatic or pulmonary disease, thyroid disease, lupus, ulcer, seizure or stroke. SOCIAL HISTORY: Nonsmoker. Has 2 glasses of wine a day. Lives with his . FAMILY HISTORY: Negative for seizure or stroke. Positive for cancer in his daughter. MEDICATIONS AT HOME: 1. Eliquis 5 b.i.d. 2. Lorazepam 0.5 at bedtime. 3. Simvastatin. 4. Losartan. 5. Isosorbide. 6. Metoprolol. 7. Potassium. 8. Lasix. 9. Vitamin D. 10. Fish oil. PHYSICAL EXAMINATION: GENERAL: On exam, he is in atrial fibrillation here. VITAL SIGNS: Blood pressure 199/123-180/89. No standing blood pressures have been checked. There are no carotid bruits. NECK: He has some fullness to the supraclavicular region, more on the right and on the left, which is boggy and soft. He says he has had it before. HEENT: Pupils reactive full. Extraocular movements intact without nystagmus. Face is symmetric with normal sensation. Tongue was midline. He is not hypomimetic. NEUROLOGIC: He has a resting tremor moderate in the right upper extremity intermittently throughout our exam. He had normal strength in upper and lower extremities bilaterally. DTRs trace throughout. Toes downgoing bilaterally. Pinprick is intact throughout. He is not ataxic on [id number]. He has normal gait with normal tandem, and negative Romberg. He has got some mild to moderate cogwheel rigidity right upper extremity with distraction, but he took a nice long step, no shuffling today. No ankle clonus. Toes are downgoing. LABORATORY DATA: CBC shows an MCV of 101-102, platelet count 111, otherwise normal. His sodium was 132, up to 135 here. LFTs have been normal. Troponin negative. B12, thyroid normal. He has not been seen by Cardiology here before. He has a history of a normal ejection fraction. Carotid ultrasound done was negative on the right, 50 to 69% in the left here. He had a cervical spine MRI done, which showed some DJD. Complains of some neck pain. He had a CT scan of his brain done, which was read as normal. Reviewed those films. There is some diffuse atrophy consistent with his age of 88. I would not say that he has NPH per se. He has got some cortical and central atrophy and a little bit of cerebellar atrophy. IMPRESSION: He tells me was having mainly left neck pain and that is gone now. He can follow up in my office, but overall, I thought he looked well, neurologically and I do not think there is anything new going on here. He should continue on his Eliquis and his cholesterol medication. He can follow up for mild Parkinson's disease. I would just have you check his standing blood pressures here and if they are okay and you can get his regular blood pressure down, he could go home. I will sign off this case at this time. MD EARL Moran/crista , 01:17 PM , 01:26 PM
--- NOTE | 2018-04-29 18:44 | MR ---
EXAM DATE: 04/29/2018 6:38 PM EDT AGE/SEX: 87 years / Male INDICATIONS: Unsteady gait. CLINICAL DATA: This is the patient's initial encounter. Patient reports that signs and symptoms have been present for 2 days and indicates a pain score of 0/10. MEDICAL/SURGICAL HISTORY: Carcinoma, prostatic. Hypertension. Cardiovascular disease. CABG. Umbilical hernia repair. COMPARISON: No prior exams available for comparison. TECHNIQUE: 3D [id number] MRA was performed. Source images, multiplanar STS MIP, and 3D volum e MIP reconstructions were reviewed. FINDINGS: The distal internal carotid arteries, basilar artery and anterior and middle cerebral arteries are pa tent. There is origin of the right [employer]. There is poor flow in the midportion of the posterior cerebra l arteries bilaterally this may be due to technical factors. There is reconstitution of flow distally on both sides. CONCLUSION: 1. No definite intracranial stenosis or vascular occlusion. Nonvisualization of the proximal to mid posterior cerebral arteries bilaterally may be due to technical factors. There is reconstitution of f low distally on both sides. Electronically signed by: Noam Richards MD 04/29/2018 6:43 PM EDT
--- NOTE | 2018-04-29 18:52 | MR ---
EXAM DATE: 04/29/2018 6:46 PM EDT AGE/SEX: 87 years / Male INDICATIONS: Unsteady gait. CLINICAL DATA: This is the patient's initial encounter. Patient reports that signs and symptoms have been present for 2 days and indicates a pain score of 0/10. MEDICAL/SURGICAL HISTORY: Carcinoma, prostatic. Hypertension. Cardiovascular disease. CABG. Umbilical hernia repair. COMPARISON: [facility], MRA HEAD W/O CONTRAST, 04/29/2018. . TECHNIQUE: Multiplanar, multisequence examination of the brain was performed without and with 8CC ml Gadavist (gadobutrol) contrast as a single exam dose. FINDINGS: Cerebrum: There is diffuse atrophy. The ventricles are normal for age. No evidence of midline shift , mass lesion, hemorrhage or acute infarction. No extraaxial fluid collections are seen. The pituit ayden gland and suprasellar cistern are normal in configuration. White Matter: No significant signal abnormalities are seen in the white matter. Posterior Fossa: The cerebellum and brainstem are intact. The 4th ventricle is midline. The cerebel lopontine angle is unremarkable. The cerebellar tonsils are normal in position. Diffusion Imaging: No focal areas of restricted diffusion are seen. No evidence of acute infarction . Extracranial: The visualized portions of the orbits and paranasal sinuses are unremarkable. Post Contrast: No abnormal areas of parenchymal or dural enhancement. No evidence of blood-brain ba rrier breakdown. CONCLUSION: Diffuse atrophy but no evidence of an acute stroke, mass or mass effect. Diffusion weigh [place] sequences are normal. No subarachnoid or subdural hematoma is identified. Electronically signed by: Dean Mcbride MD 04/29/2018 6:50 PM EDT
[2018-04-30 04:01] VITALS: O2SAT 91
--- NOTE | 2018-04-30 07:42 | P.PN ---
Subjective Interval history: Follow-up on patient with headache. Patient seen and examined. Patient says he is doing better. He says he slept well last night. He denies any headache or neck pain. He denies any chest pain or dyspnea. He denies any N/V or abdominal pain. Physical Exam Vital signs: Vital Signs 04/29/18 07:45 04/29/18 09:20 04/29/18 12:00 Temperature 98.4 F 97.5 F L Pulse Rate 67 69 74 Respiratory Rate 12 16 Blood Pressure 180/89 H 197/97 H Pulse Oximetry 99 93 L 04/29/18 15:55 04/29/18 20:00 04/30/18 00:00 Temperature 97.4 F L 97.4 F L 97.4 F L Pulse Rate 82 63 70 Respiratory Rate 20 18 19 Blood Pressure 147/85 H 173/96 H 126/61 Pulse Oximetry 93 L 96 96 04/30/18 03:58 Temperature 98.0 F Pulse Rate 74 Respiratory Rate 18 Blood Pressure 136/82 Pulse Oximetry 91 L Intake & Output 04/29/18 04/30/18 04/30/18 18:59 06:59 18:59 Intake Total 240 / 240 Balance 240 / 240 Intake: Oral 240 / 240 Other: # Voids 4 3 Date of Last Bowel Movement 04/28/18 04/28/18 Narrative: GENERAL: Well-developed well-nourished elderly male patient in no acute distress. Awake and alert. Appears comfortable sitting in bedside chair. + mild RUE essential tremor. SKIN: Warm and dry. HEENT: Atraumatic. Normocephalic. Pupils equal and round. No scleral icterus. No injection or drainage. No nasal bleeding or discharge. Mucous membranes pink and moist. Bilateral neck fullness. Patient reports this has been looked into by primary care and patient with bilateral lipomas. NECK: Trachea midline. CARDIOVASCULAR: Regular rate and rhythm. RESPIRATORY: No accessory muscle use. Clear to auscultation. Breath sounds equal bilaterally. GASTROINTESTINAL: Abdomen soft, non-tender, nondistended. +BS. MUSCULOSKELETAL: Extremities without clubbing, cyanosis, or edema. No obvious deformities. NEUROLOGICAL: Awake and alert. No obvious cranial nerve deficits. Motor grossly within normal limits. Able to move all extremities spontaneously. Normal speech. PSYCHIATRIC: Appropriate mood and affect; insight and judgment normal. Results - Labs CBC & Chem 7: 04/29/18 01:29 04/29/18 01:29 Laboratory Results - last 24 hr 04/29/18 04/29/18 04/29/18 07:21 16:45 ESR 7 Hemoglobin A1c 6.1 H Troponin I Less than 0.02 L - Imaging Impressions Carotid Doppler Study 04/29/18 00:00 CONCLUSION: 1. Right Internal Carotid Artery: Findings indicate <50% stenosis. 2. Left Internal Carotid Artery: Findings indicate 50-69% stenosis. Cervical Spine MRI 04/29/18 00:00 CONCLUSION: There are degenerative changes of the cervical spine, as above. However, no significant spinal canal stenosis or neural foraminal narrowing is present. Head MRI 04/29/18 00:00 CONCLUSION: Diffuse atrophy but no evidence of an acute stroke, mass or mass effect. Diffusion weighted sequences are normal. No subarachnoid or subdural hematoma is identified. Head MRA 04/29/18 00:00 CONCLUSION: 1. No definite intracranial stenosis or vascular occlusion. Nonvisualization of the proximal to mid posterior cerebral arteries bilaterally may be due to technical factors. There is reconstitution of flow distally on both sides. Assessment and Plan - Plan 87-year-old male with a history of coronary artery disease status post 5 vessel CABG, peripheral artery disease, abdominal aortic aneurysm who presents with a 2 -day history of progressively worsening throbbing bilateral neck pain radiating to bilateral head, shuffling, wide-based gait with generalized weakness. Hypertensive urgency With symptoms of headache, BL pounding neck pain Patient does have known abdominal aortic aneurysm, however without abdominal pain at this time. Systolic blood pressures in the 220s. Head CT with no acute intracranial abnormalities -Continue on home medications losartan, isosorbide, metoprolol and Eliquis -BP better but still elevated. Losartan dose increased to 50mg daily by Cardiology -IV Vasotec as needed Headache, possibly cervicogenic in origin vs secondary to uncontrolled BP ?Greater occipital neuralgia MRI brain Diffuse atrophy but no evidence of an acute stroke, mass or mass effect. Diffusion weighted sequences are normal. No subarachnoid or subdural hematoma is identified. MRI cervical spine +multiple level DDD cervical spine MRA unremarkable -Trial of Fioricet ER concern for atypical chest pain history of 5 vessel CABG Patient denies any complaints of chest pain EKG and troponins unremarkable. -Cardiology consulted, appreciate assistance. Added amlodipine to patient's antihypertensive regimen. Losartan dose increased. No further workup for ischemia. Cleared for discharge from cardiac standpoint. Atrial fibrillation, rate controlled -Resume patient on home dose of Eliquis and beta-tulio -Monitor heart rate Recent complaint of ataxia, wide-based gait Exacerbation of right upper extremity essential tremor. Complains of "lightheadedness," however description is more of ataxia and wide- based gait. Suspect this could be secondary to high blood pressure. Carotid US revealing less than 50% stenosis in the right internal carotid artery , 50-69% stenosis in the left internal carotid artery Orthostatics neg -Neurology evaluated, appreciate assistance. Cleared for discharge. Aggressive blood pressure control. -Also with symptoms consistent with Parkinson's. -discussed finding of left sided carotid stenosis. Patient follows with vascular surgeon as outpatient for his AAA. He will follow up with them as outpatient. Hyperlipidemia, chronic -Continue home statin therapy Prediabetes HgbA1c 6.1 -discussed dietary modifications -patient will need repeat HgbA1c as outpatient in 3 mos. 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 Discharge Planning: Not ready for discharge
[2018-04-30] MEDS: Isosorbide Mononitrate 30 MG ER 24HR Tablet (Imdur) PO SCH (09:21)
[2018-04-30] MEDS: amLODIPine 5 MG Tablet PO SCH (09:21)
[2018-04-30] MEDS: Metoprolol Tartrate 25 MG Tablet PO SCH (09:21)
[2018-04-30 09:23] VITALS: PULSE 76; RESP 16; TEMP 98.3
[2018-04-30 10:08] VITALS: BP 162/74
--- NOTE | 2018-04-30 10:17 | P.PNCA ---
Subjective Interval history: Pt without complaints Medications and Allergies Active Medications: Active Medications Acetaminophen/Butalbital/Caffeine (Fioricet 50-325-40) 1 tab PO Q8H PRN PRN Reason: HEADACHE Al Hydroxide/Mg Hydroxide (Milk Of Magnesia Liq) 30 ml PO Q12H PRN PRN Reason: Mild Constipation Amlodipine Besylate (Norvasc) 5 mg PO DAILY [facility] Last Admin: 04/30/18 09:21 Dose: 5 mg Apixaban (Eliquis) 5 mg PO BID [facility] Last Admin: 04/30/18 09:21 Dose: 5 mg Bisacodyl (Dulcolax Supp) 10 mg RECTAL DAILY PRN PRN Reason: SEVERE CONSITIPATION Clonidine HCl (Catapres) 0.1 mg PO Q6H PRN PRN Reason: SBP>180, DBP>95 Cyanocobalamin (Vitamin B12) 1,000 mcg PO DAILY [facility] Last Admin: 04/30/18 09:21 Dose: 1,000 mcg Enalaprilat (Vasotec Inj) 1.25 mg IV.PUSH Q6H PRN PRN Reason: SBP>160, DBP>90 Last Admin: 04/29/18 21:11 Dose: 1.25 mg Isosorbide Mononitrate (Imdur) 30 mg PO DAILY [facility] Last Admin: 04/30/18 09:21 Dose: 30 mg Lactulose (Lactulose Liq) 30 ml PO DAILY PRN PRN Reason: SEVERE CONSITIPATION Losartan Potassium (Cozaar) 25 mg PO DAILY [facility] Last Admin: 04/30/18 09:20 Dose: 25 mg Metoprolol Tartrate (Lopressor) 25 mg PO BID [facility] Last Admin: 04/30/18 09:21 Dose: 25 mg Pravastatin Sodium (Pravachol) 20 mg PO QPM [facility] Last Admin: 04/29/18 19:26 Dose: 20 mg Sennosides (Senokot) 17.2 mg PO Q12H PRN PRN Reason: Moderate Constipation Sodium Chloride (Ns Flush) 2 ml IV.FLUSH UNSCH PRN PRN Reason: FLUSH AFTER USING IV ACCESS Allergies Allergy/AdvReac Type Severity Reaction Status Date / Time No Known Allergies Allergy Verified 04/28/18 19:06 Home Medications Medication Instructions Recorded Confirmed Type Fish Oil 04/28/18 History Vitamin D3 04/28/18 History apixaban [Eliquis] 5 mg PO BID 04/28/18 04/28/18 History furosemide [Lasix] mg PO DAILY PRN 04/28/18 04/28/18 History isosorbide mononitrate 30 mg PO DAILY 04/28/18 04/28/18 History lorazepam 0.5 mg PO HS 04/28/18 04/28/18 History losartan 25 mg PO DAILY 04/28/18 04/28/18 History metoprolol succinate 25 mg PO DAILY 04/28/18 04/28/18 History potassium chloride meq PO DAILY PRN 04/28/18 History simvastatin 10 mg PO QPM 04/28/18 04/28/18 History Physical Exam Vital signs: Vital Signs 04/29/18 12:00 04/29/18 15:55 04/29/18 20:00 Temperature 97.5 F L 97.4 F L 97.4 F L Pulse Rate 74 82 63 Respiratory Rate 16 20 18 Blood Pressure 197/97 H 147/85 H 173/96 H Pulse Oximetry 93 L 93 L 96 04/30/18 00:00 04/30/18 03:58 04/30/18 08:00 Temperature 97.4 F L 98.0 F 98.3 F Pulse Rate 70 74 76 Respiratory Rate 19 18 16 Blood Pressure 126/61 136/82 177/95 H Pulse Oximetry 96 91 L 04/30/18 10:07 Temperature Pulse Rate Respiratory Rate Blood Pressure 162/74 H Pulse Oximetry Intake & Output 04/29/18 04/30/18 04/30/18 18:59 06:59 18:59 Intake Total 240 / 240 Balance 240 / 240 Intake: Oral 240 / 240 Other: # Voids 4 3 Date of Last Bowel Movement 04/28/18 04/28/18 04/28/18 - Constitutional no acute distress - Routine HEENT Exam Head: Present: normocephalic - Routine Neck Exam Comments: no JVD - Routine Respiratory Exam Present: CTA bilaterally Comments: No murmurs or edema Results 04/29/18 01:29 04/29/18 01:29 Cardiac Enzymes 04/28/18 04/28/18 04/29/18 Range/Units 19:41 19:41 01:29 AST 23 20 (15-37) U/L Troponin I Less than 0.02 L Less than 0.02 L (0.02-0.05) ng/mL B-Natriuretic Peptide 346 H (0-100) pg/mL 04/29/18 Range/Units 07:21 AST (15-37) U/L Troponin I Less than 0.02 L (0.02-0.05) ng/mL B-Natriuretic Peptide (0-100) pg/mL Coagulation 04/28/18 04/28/18 Range/Units 19:41 20:15 PT 12.3 H (9.8-11.6) sec B-Natriuretic Peptide 346 H (0-100) pg/mL CBC 04/28/18 04/29/18 Range/Units 19:41 01:29 WBC 6.4 6.1 (4.0-11.0) th/mm3 RBC 3.91 L 3.45 L (4.50-5.90) mil/mm3 Hgb 13.5 12.0 L (13.0-17.0) gm/dL Hct 40.1 35.0 L (39.0-51.0) % Plt Count 116 L 111 L (150-450) th/mm3 Neut # (Auto) 4.3 3.9 (1.8-7.7) th/mm3 Lymph # (Auto) 1.5 1.7 (1.0-4.8) th/mm3 [place] # (Auto) 0.5 0.5 (0.0-0.9) th/mm3 Eos # (Auto) 0.1 0.0 (0.0-0.4) th/mm3 Baso # (Auto) 0.0 0.0 (0.0-0.2) th/mm3 Comprehensive Metabolic Panel 04/28/18 04/29/18 Range/Units 19:41 01:29 Sodium 132 L 135 L (136-145) meq/L Potassium 4.6 4.3 (3.5-5.1) meq/L Chloride 99 102 (98-107) meq/L Carbon Dioxide 27.7 25.4 (21.0-32.0) meq/L BUN 11 11 (7-18) mg/dL Creatinine 0.97 0.76 (0.60-1.30) mg/dL Calcium 8.5 8.2 L (8.5-10.1) mg/dL AST 23 20 (15-37) U/L ALT 27 20 (12-78) U/L Alkaline Phosphatase 99 79 (45-117) U/L Total Protein 7.6 6.2 L D (6.4-8.2) g/dL Albumin 4.0 3.4 D (3.4-5.0) g/dL Intake and Output 04/29/18 04/30/18 04/30/18 22:59 06:59 14:59 Intake Total 240 / 240 Balance 240 / 240 Intake: Oral 240 / 240 Other: # Voids 4 3 Date of Last Bowel Movement 04/28/18 04/28/18 - Imaging and Cardiology Imaging: Impressions Head CT 04/28/18 00:00 CONCLUSION: 1. No acute intracranial abnormalities . Chest X-Ray 04/28/18 19:31 CONCLUSION: Previous CABG with cardiomegaly. Basilar density could represent some dependent atelectasis. Questionable mild interstitial edema. Carotid Doppler Study 04/29/18 00:00 CONCLUSION: 1. Right Internal Carotid Artery: Findings indicate <50% stenosis. 2. Left Internal Carotid Artery: Findings indicate 50-69% stenosis. Cervical Spine MRI 04/29/18 00:00 CONCLUSION: There are degenerative changes of the cervical spine, as above. However, no significant spinal canal stenosis or neural foraminal narrowing is present. Head MRI 04/29/18 00:00 CONCLUSION: Diffuse atrophy but no evidence of an acute stroke, mass or mass effect. Diffusion weighted sequences are normal. No subarachnoid or subdural hematoma is identified. Head MRA 04/29/18 00:00 CONCLUSION: 1. No definite intracranial stenosis or vascular occlusion. Nonvisualization of the proximal to mid posterior cerebral arteries bilaterally may be due to technical factors. There is reconstitution of flow distally on both sides. Assessment and Plan - Plan HTN- better not great -increase losartan 50 mg a day -keep low sodium diet -close follow up CAD- stable
== END 2018-04-30 11:19 | disposition home or self-care (01) ==
LOC: NEPE 18:55 → NEDA 18:55 → NEPHCDU 23:46
PROVIDERS: ADMIT Hospitalist; ATTEND Hospitalist